=== PATIENT | male | born 1970 | race Caucasian/White ===

== ENCOUNTER 2018-10-07 11:41 | Inpatient (IN) | payer SELFPAY ==
[2018-10-07 12:12] LABS: Bilirubin Negative (Negative); Blood, Urine Negative (Negative); Clarity CLEAR (Clear); Glucose, Urine (Dipstick) >=1000 mg/dL (Negative); Leukocyte Negative (Negative); Nitrite Negative (Negative); Protein, Urine (Dipstick) Negative (Neg-Trace); Specific Gravity, Urine 1.045 (1.002-1.036)
[2018-10-07 12:24] LABS: #Basophils 0.1 thou/uL (0.0-0.2); #Eosinphils 0.2 thou/uL (0.0-0.7); #Lymphocytes 2.6 thou/uL (1.20-3.40); #Monocytes 0.6 thou/uL (0.11-0.59); #Neutrophils 5.5 thou/uL (1.40-6.50); %Basophils 0.7 % (0.0-1.0); %Eosinophils 2.7 % (0.0-10.0); %Lymphocytes 28.7 % (21.0-51.0); %Monocytes 6.4 % (0.0-10.0); %Neutrophils 61.4 % (42.0-75.0); Mean Corpuscular HGB CONC 34.7 g/dL (32.0-36.0); Mean Corpuscular Hemoglobin 32.4 pg (27.0-31.0); Mean Corpuscular Volume 93.3 fL (78.0-98.0); Mean Platelet Volume 10.1 fL (7.4-10.4); Platelet Count 158 thou/uL (130-400); RBC Distribution Width 12.1 % (11.5-14.5); Red Blood Cell (RBC) Count 5.57 mill/uL (4.70-6.10); White Blood Cell (WBC) Count 8.9 thou/uL (4.8-10.8)
--- NOTE | 2018-10-07 12:28 | RAD ---
PA AND LATERAL VIEWS CHEST: HISTORY: Cough. FINDINGS: Comparison is made with the exam of 10/17/2015. The heart size is normal. There is continued mild elevation of the right hemidiaphragm. No focal ar eas of consolidation, pneumothoraces, or pleural effusions are seen. No acute osseous abnormalities are identified. IMPRESSION: No radiographic evidence of acute cardiopulmonary process. POS: C
[2018-10-07 12:47] LABS: ALT (SGPT) 160 U/L (8-55); AST (SGOT) 67 U/L (5-34); Alkaline Phosphatase 252 U/L (40-150); Anion Gap 21 mmol/L (10-20); BUN (Urea Nitrogen) 8 mg/dL (8.9-20.6); Bilirubin, Total 0.8 mg/dL (0.2-1.2); Calc. Creatinine Clearance 0 mL/min (70-130); Calcium 9.5 mg/dL (7.8-10.44); Carbon Dioxide 16 mmol/L (22-29); Chloride 93 mmol/L (98-107); Estimated GFR-MDRD 87; Glucose 453 mg/dL (70-105); Potassium 4.2 mmol/L (3.5-5.1); Sodium 126 mmol/L (136-145)
[2018-10-07 14:21] LABS: Base Excess-Venous 3.2 mmol/L (0 (+/- 2.5)); Bicarbonate (HCO3v) 27.5 mmol/L (1.0-85.0); CO2 Tension (PvCO2) 39.6 mmHg (41.0-51.0); Calcium, Ionized 1.21 mmol/L (1.12-1.32); Hemoglobin - Calc 19.6 g/dL (12.0-18.0); Potassium 3.9 mmol/L (3.4-4.7); T. Carbon Dioxide 28.7 mmol/L (1.0-85.0); pH (Venous) 7.449 (7.35-7.45); vO2 Saturation-calc 87.3 % (94-98)
[2018-10-07 14:59] LABS: Lipase 57 U/L (8-78); Magnesium 2.5 mg/dL (1.6-2.6); Phosphorus 2.3 mg/dL (2.3-4.7)
[2018-10-07] MEDS ORDERED: Piperacillin/Tazobactam 3.375 GM VIAL ONE (15:25)
--- NOTE | 2018-10-07 15:25 | ULT ---
GALLBLADDER ULTRASOUND: Date: 10/07/18 HISTORY: Abdominal pain, elevated LFTs. FINDINGS: The liver demonstrates coarse and increased echogenicity concerning for fatty infiltration. No focal mass or intrahepatic ductal dilatation is seen. There is sludge in the gallbladder without shadowing gallstones. Gallbladder wall is mildly thickened, measuring 4.0 mm in thickness. No pericholecystic f luid is seen. Common duct measures 1.0 cm in diameter. Pancreas is not well visualized due to overlyi ng bowel gas. Right kidney is normal. No free fluid seen in Morison's pouch. IMPRESSION: 1. Fatty liver. 2. Gallbladder sludge and gallbladder wall thickening. 3. Dilated common bile duct. POS: [facility]
[2018-10-07] MEDS ORDERED: Ondansetron PF 4 MG/2 ML Vial IVP PRN (18:44)
[2018-10-07] MEDS ORDERED: Acetaminophen 325 MG TAB PO PRN (18:44)
[2018-10-07] MEDS ORDERED: Dextrose 5% in Water 1,000 ML IV PRN (18:44)
[2018-10-07] MEDS ORDERED: Dextrose 50% Abboject 50 ML SYRINGE SLOW IVP PRN (18:44)
--- NOTE | 2018-10-07 19:02 | PDOC.FPRHP ---
- History of Present Illness Chief Complaint: Generalized weakness, N/V History of Present Illness: 48 year old male with no reported PMH that presents with a 2 week history of generalized weakness, N/V, polyuria, and polydipsia. Patient states that he has been urinating appx every 45 minutes. He also has been constantly thirsty and feels as though he is unable to quench his thirst. He has been nauseous and unable to tolerate PO, although he did eat two hotdogs yesterday. He states that normally he would eat four in one sitting. He states that he generally doesn't feel well. He has had intermittent diarrhea for the last several months. He states that his significant other has an URI, but otherwise he has not been around any sick contacts. Patient denies any recent travel. He denies any past history of blood glucose intolerance. He does not take any medications at home. Patient denies any bloody stools or bloody emesis. He denies any abdominal pain, chest pain, shortness of breath, or palpitations. ED Course: Patient was fluid resuscitated in the ED and started on Zosyn for presumed cholecystitis. Surgery was consulted and advised that a HIDA scan be performed to further evaluate for cholecystitis. - Allergies/Adverse Reactions Allergies Allergy/AdvReac Type Severity Reaction Status Date / Time venom-honey bee Allergy Verified 02/11/15 03:09 [bee venom (honey bee)] - History PMHx: None reported, although our records from prior hospitalization state that patient has history of COPD, HTN, HLD, Tobacco abuse PSHx: Patient denies FHx: Non-contributory Social: Patient endorses smoking 1.5 packs per day since 15 years old. Patient endorses socially drinking. Patient denies drug use. - Review of Systems General: reports: fever/chills (chills), fatigue. denies: weight/appetite/ sleep changes Eyes: denies: vision changes ENT: denies: nasal congestion, rhinorrhea Respiratory: reports: cough (chronic). denies: congestion, shortness of breath Cardiovascular: denies: chest pain, palpitation, edema Gastrointestinal: reports: nausea, vomiting, diarrhea. denies: constipation, abdominal pain, GI bleeding Genitourinary: denies: dysuria Skin: denies: rashes, lesions Musculoskeletal: denies: pain Neurological: reports: weakness. denies: numbness, syncope Psychological: denies: anxiety, depression - Vital signs BP: 121/72 HR: 90 RR: 18 Tmax: 98.8F Pox: 95% on RA Wt: 106 kg - Physical Exam Constitutional: NAD, awake, alert and oriented, well developed HEENT: normocephalic and atraumatic, PERRLA, EOMI -HEENT: Dry mucous membranes Neck: supple Heart: RRR, normal S1/S2 Lungs: CTAB, no respiratory distress, no wheezing -Lungs: Decreased sounds throughout Abdomen: soft, non-tender, bowel sounds present, no masses/distention Musculoskeletal: normal structure, normal tone, ROM grossly normal Neurological: no focal deficit, normal sensation Skin: no rash/lesions, capillary refill <2 seconds Heme/Lymphatic: no unusual bruising or bleeding, no purpura Psychiatric: normal mood and affect, good judgment and insight, intact recent and remote memory FMR H&P: Results - Labs Result Diagrams: 10/07/18 12:13 10/07/18 12:13 Lab results: WBC 8.9 thou/uL (4.8-10.8) 10/07/18 12:13 Hgb 18.0 g/dL (14.0-18.0) 10/07/18 12:13 Hct 52.0 % (42.0-52.0) 10/07/18 12:13 MCV 93.3 fL (78.0-98.0) 10/07/18 12:13 Plt Count 158 thou/uL (130-400) 10/07/18 12:13 Neutrophils % 61.4 % (42.0-75.0) 10/07/18 12:13 VBG pCO2 39.6 mmHg (41.0-51.0) L 10/07/18 14:18 VBG pO2 51.0 mmHg (35.0-45.0) H 10/07/18 14:18 Sodium 126 mmol/L (136-145) L 10/07/18 12:13 Potassium 4.2 mmol/L (3.5-5.1) 10/07/18 12:13 Chloride 93 mmol/L (98-107) L 10/07/18 12:13 Carbon Dioxide 16 mmol/L (22-29) L 10/07/18 12:13 BUN 8 mg/dL (8.9-20.6) L 10/07/18 12:13 Creatinine 0.93 mg/dL (0.6-1.3) 10/07/18 12:13 Glucose 453 mg/dL (70-105) H 10/07/18 12:13 Calcium 9.5 mg/dL (7.8-10.44) 10/07/18 12:13 Total Bilirubin 0.8 mg/dL (0.2-1.2) 10/07/18 12:13 AST 67 U/L (5-34) H 10/07/18 12:13 ALT 160 U/L (8-55) H 10/07/18 12:13 Alkaline Phosphatase 252 U/L (40-150) H 10/07/18 12:13 Serum Total Protein 8.0 g/dL (6.0-8.3) 10/07/18 12:13 Albumin 4.0 g/dL (3.5-5.0) 10/07/18 12:13 Lipase 57 U/L (8-78) 10/07/18 12:11 Urine Ketones 15 mg/dL (Negative) H 10/07/18 11:44 Urine Blood Negative (Negative) 10/07/18 11:44 Urine Nitrite Negative (Negative) 10/07/18 11:44 Ur Leukocyte Esterase Negative (Negative) 10/07/18 11:44 - Radiology Interpretation Chest x-ray Status: image reviewed by me, report reviewed by me Additional comment: No acute cardiopulmonary processes US - abdomen Status: report reviewed by me Additional comment: Biliary slugde and gallbladder wall thickening. Fatty liver. Dilated CBD. FMR H&P: A/P - Problem List (1) Diabetes mellitus, new onset Current Visit: Yes Status: Acute Code(s): E11.9 - TYPE 2 DIABETES MELLITUS WITHOUT COMPLICATIONS (2) Cholecystitis Current Visit: Yes Status: Acute Code(s): K81.9 - CHOLECYSTITIS, UNSPECIFIED (3) Elevated LFTs Current Visit: Yes Status: Acute Code(s): R94.5 - ABNORMAL RESULTS OF LIVER FUNCTION STUDIES - Plan 48 year old male with 2 week history of N/V, weakness, polyuria and polydipsia 1. New onset DM - Likely type II - Random BG > 200 (453) with symptoms - Does not appear to be in DKA. VBG 7.45/39.6/51, Beta-hydroxy 0.7, AG 20, HCO3 16 - CXR negative - Serum osm pending - Q4H accuchecks - Mild SSI; patient insulin naive so monitor closely - Hyperglycemia protocol initiated - Titrate insulin appropriately - FLP pending - HgA1c pending - Patient started on YURI-I, Statin, and ASA - Discuss influenza vaccine, pneumonia vaccine, Hep B series - CC diet - Patient fluid resuscitated in ED - AM BMP 2. Possible cholecystitis - RUQ sono with biliary sludge and gallbladder wall thickening, fatty liver, and dilated CBD - Surgery consulted in ED and recommend HIDA scan be performed to further evaluate - Patient made NPO at midnight for HIDA scan tomorrow - Procalcitonin pending - Patient started on Zosyn per surgery recs - No systemic signs of infection 3. Elevated LFT's - Possibly 2/2 cholecystitis - Lipase negative - Consider GGT to further evaluate as liver etiology - Sono did show evidence of fatty liver 4. Possible HTN - Past records indicate patient has HTN - Patient's BP wnl today - Patient started on low dose YURI-I for renal protection in DM 5. Anion gap metabolic acidosis - AG 20, HCO3 16 - Likely respiratory compensation - Patient fluid resuscitated and goal to bring down BG levels Dispo: Stable. Admit to medical unit. Monitor BG and titrate insulin accordingly. HIDA scan tomorrow with further recs pending those results. FMR H&P: Upper Level - Plan Date/Time: 10/07/18 1859 I, [], have evaluated this patient and agree with findings/plan as outlined by internet programmer resident. Pertinent changes/additions are listed here.
[2018-10-07 19:09] LABS: Hemoglobin A1c 14.6 % (4.0-6.0)
[2018-10-07] MEDS: Nicotine 21 MG PATCH TD SCH (19:24)
[2018-10-07] MEDS: Lactated Ringer's 1,000 ML IV SCH (19:27)
[2018-10-07] MEDS: HumaLOG 300 UNITS/3 ML VIAL SC PRN ×2 (19:29→23:16)
[2018-10-07 19:53] VITALS: BMI 32.5
[2018-10-07] MEDS: Piperacillin/Tazobactam 3.375 GM in Sodium Chloride 0.9% 100 ML IVPB SCH (20:30)
[2018-10-07] MEDS ORDERED: Atorvastatin Calcium 10 MG TAB PO SCH (21:00)
[2018-10-08] MEDS: Piperacillin/Tazobactam 3.375 GM in Sodium Chloride 0.9% 100 ML IVPB SCH ×2 (02:52→08:04)
[2018-10-08] MEDS: Lactated Ringer's 1,000 ML IV SCH ×2 (02:52→13:08)
[2018-10-08 05:03] LABS: ALT (SGPT) 106 U/L (8-55); AST (SGOT) 44 U/L (5-34); Albumin 3.2 g/dL (3.5-5.0); Alkaline Phosphatase 199 U/L (40-150); Anion Gap 17 mmol/L (10-20); BUN (Urea Nitrogen) 8 mg/dL (8.9-20.6); Bilirubin, Total 0.6 mg/dL (0.2-1.2); Calc. Creatinine Clearance 165 mL/min (70-130); Calcium 8.6 mg/dL (7.8-10.44); Carbon Dioxide 17 mmol/L (22-29); Cardiac Risk 25.7 (Less than 4.5); Chloride 98 mmol/L (98-107); Cholesterol 463 mg/dl (< 200 Desired); Estimated GFR-MDRD Greater than 90; Globulin 3.2 g/dL (2.4-3.5); Glucose 367 mg/dL (70-105); HDL Cholesterol 18 mg/dL (>60 Neg Risk); Potassium 3.5 mmol/L (3.5-5.1); Protein, Total 6.4 g/dL (6.0-8.3); Sodium 128 mmol/L (136-145)
[2018-10-08 05:06] LABS: Band 4 % (5-11); Eosinophils 4 % (0-10); Hemoglobin 15.5 g/dL (14.0-18.0); Lymphocytes 35 % (21-51); MDiff Complete? YES; Mean Corpuscular HGB CONC 35.4 g/dL (32.0-36.0); Mean Corpuscular Hemoglobin 33.4 pg (27.0-31.0); Mean Corpuscular Volume 94.2 fL (78.0-98.0); Mean Platelet Volume 10.2 fL (7.4-10.4); Metamyelocyte 1 % (0-0); Monocytes 2 % (0-10); Neutrophil 52 % (42-75); PLT Morphology Comment Appears Adequate; Platelet Count 130 thou/uL (130-400); RBC Distribution Width 11.9 % (11.5-14.5); Red Blood Cell (RBC) Count 4.65 mill/uL (4.70-6.10)
[2018-10-08 05:12] LABS: Triglycerides 2456 mg/dL (Less than 150)
[2018-10-08] MEDS: HumaLOG 300 UNITS/3 ML VIAL SC PRN ×3 (06:06→20:45)
--- NOTE | 2018-10-08 06:26 | PDOC.FM ---
- Subjective Subjective: No complaints, reports feeling much better. Still urinating frequently. Denies abd pain, chest pain. - Objective Vital Signs & Weight: Vital Signs (12 hours) Temp Pulse Resp BP Pulse Ox 10/08/18 04:00 98.0 F 76 16 149/83 H 96 10/07/18 20:00 95 Weight Weight 106 kg Result Diagrams: 10/08/18 03:54 10/08/18 03:54 Phys Exam - Physical Examination Constitutional: NAD HEENT: PERRLA, sclera anicteric Neck: full ROM Respiratory: no wheezing, clear to auscultation bilateral Cardiovascular: RRR, no significant murmur Gastrointestinal: soft, non-tender, no distention, positive bowel sounds Musculoskeletal: no edema, pulses present Neurological: non-focal, normal sensation, moves all 4 limbs Psychiatric: normal affect, A&O x 3 Skin: normal turgor Dx/Plan (1) Diabetes mellitus, new onset Code(s): E11.9 - TYPE 2 DIABETES MELLITUS WITHOUT COMPLICATIONS Status: Acute (2) Cholecystitis Code(s): K81.9 - CHOLECYSTITIS, UNSPECIFIED Status: Acute (3) Hypertriglyceridemia Code(s): E78.1 - PURE HYPERGLYCERIDEMIA Status: Acute (4) Increased anion gap metabolic acidosis Code(s): E87.2 - ACIDOSIS Status: Acute (5) Elevated LFTs Code(s): R94.5 - ABNORMAL RESULTS OF LIVER FUNCTION STUDIES Status: Acute (6) HTN (hypertension) Code(s): I10 - ESSENTIAL (PRIMARY) HYPERTENSION Status: Chronic Qualifiers: Qualified Code(s): I10 - Essential (primary) hypertension - Plan Plan: 48 yo M with new onset DM, possible cholecystitis, elevated LFT, HTN New onset DM, likely type 2, uncontrolled -A1c 14, overnight glucoses in 300s -Start 70/30, 11 units BID & metformin low dose, will inc. if tolerates -ACEI, Statin, ASA Possible cholecystitis -HIDA scan today -No systemic signs of infection -Procal negative -Continue zosyn per surgery recs Hypertriglyceridemia -TG 2456 -Possible familial HyperTG, but patient has never been on medications as well -Started high intensity statin & fenofibrate -ASCVD >87% Anion gap metabolic acidosis, improved - AG 17, HCO3 17 today - Likely respiratory compensation - Expect to improve with glycemic control Elevated LFT's - Possibly 2/2 cholecystitis vs NAFLD - US showed fatty liver HTN -BPs stable -Continue ACEI DVT ppx: SCD Dispo: Stable. Pending HIDA scan results. Working to achieve better glycemic control. Discussed w/ Dr Campos
[2018-10-08] MEDS: Lisinopril 2.5 MG TAB PO SCH (08:05)
[2018-10-08] MEDS ORDERED: Atorvastatin Calcium 10 MG TAB PO SCH (09:00)
[2018-10-08] MEDS ORDERED: Insulin NPH/Reg Insulin Hm 300 UNITS/3 ML VIAL SC SCH (11:30)
[2018-10-08] MEDS: Fenofibrate 48 MG TAB PO SCH (12:25)
[2018-10-08] MEDS: NPH, Human Insulin Isophane 300 UNIT/3 ML VIAL SC SCH ×2 (12:27→20:44)
--- NOTE | 2018-10-08 13:18 | PRG ---
DATE OF SERVICE: 10/08/2018 ADDENDUM: This is an addendum to the note of Dr. Shobha Alaniz. Mr. Carcamo is a 48-year-old man who was admitted with new onset type 2 diabetes with profound hyperglycemia and hypertriglyceridemia, but no evidence of DKA. He also had some evidence of cholelithiasis and possible cholecystitis. Surgery has recommended HIDA scan. We are awaiting the results. We have started the patient on appropriate therapy for his type 2 diabetes, and we are following with recommendations as per Surgery following the HIDA scan. Job ID: [id number]
--- NOTE | 2018-10-08 14:27 | NM ---
HEPATOBILIARY SCAN: Date: 10/08/18 COMPARISON: Gallbladder ultrasound dated 10/07/18. HISTORY: [id number] male with epigastric abdominal pain and possible cholecystitis. TECHNIQUE: Hepatobiliary scan was performed after administration of 5.1 mCi of technetium-99m mebrofenin. FINDINGS: Prompt uptake of the radiopharmaceutical by the liver is seen. Biliary activity is seen within 15 min utes. Bowel activity is seen within 25 minutes. Gallbladder activity is seen after 1 hour, but before the end of the examination. A gallbladder ejection fraction was calculated after administration of 8 oz. of Ensure PO. The ejection fraction is greater than 50%. Evaluation of the gallbladder is limite d as a significant amount of contrast was seen in small bowel loops overlying the gallbladder on the anterior views. IMPRESSION: 1. No evidence of acute cholecystitis. 2. Slight delayed uptake of the radiopharmaceutical by the gallbladder in the first hour, may be sec ondary to chronic cholecystitis. POS: [facility]
[2018-10-08] MEDS: metFORMIN 500 MG TAB PO SCH (16:37)
[2018-10-08] MEDS: Nicotine 21 MG PATCH TD SCH (19:22)
[2018-10-08] MEDS ORDERED: Atorvastatin Calcium 40 MG TAB PO SCH (21:00)
[2018-10-09] MEDS: HumaLOG 300 UNITS/3 ML VIAL SC PRN ×2 (05:34→11:40)
--- NOTE | 2018-10-09 06:15 | PDOC.FM ---
- Subjective Subjective: No acute events overnight. Feeling back to baseline. Denies abd pain, polyuria, polydipsia . - Objective MAR Reviewed: Yes Vital Signs & Weight: Vital Signs (12 hours) Temp Pulse Resp BP Pulse Ox 10/09/18 03:55 92 L 10/08/18 20:00 98.5 F 91 18 133/79 92 L Weight Weight 106 kg I&O: 10/07/18 10/08/18 10/09/18 06:59 06:59 06:59 Intake Total 480 Balance 480 Result Diagrams: 10/09/18 08:06 10/09/18 08:06 Phys Exam - Physical Examination Constitutional: NAD HEENT: PERRLA, moist MMs, sclera anicteric Neck: full ROM Respiratory: no wheezing, clear to auscultation bilateral Cardiovascular: RRR, no significant murmur Gastrointestinal: soft, non-tender, no distention Musculoskeletal: no edema Neurological: non-focal, moves all 4 limbs Psychiatric: normal affect, A&O x 3 Dx/Plan (1) Diabetes mellitus, new onset Code(s): E11.9 - TYPE 2 DIABETES MELLITUS WITHOUT COMPLICATIONS Status: Acute (2) Cholecystitis Code(s): K81.9 - CHOLECYSTITIS, UNSPECIFIED Status: Ruled-out (3) Hypertriglyceridemia Code(s): E78.1 - PURE HYPERGLYCERIDEMIA Status: Acute (4) Increased anion gap metabolic acidosis Code(s): E87.2 - ACIDOSIS Status: Acute (5) Elevated LFTs Code(s): R94.5 - ABNORMAL RESULTS OF LIVER FUNCTION STUDIES Status: Acute (6) HTN (hypertension) Code(s): I10 - ESSENTIAL (PRIMARY) HYPERTENSION Status: Chronic Qualifiers: Qualified Code(s): I10 - Essential (primary) hypertension - Plan Plan: 48 yo M with new onset DM, possible cholecystitis, elevated LFT, HTN New onset IDDM2,improved -Increase 70/30 to 14 units BID -ACEI, Statin, ASA -Diabetic education on board -Continue titrating insulin -If glucose <300 and pt asx, can consider d/c to home Hypertriglyceridemia -TG 2456 on 10/08 -ASCVD >87% -Continue atorvastatin & fenofibrate Elevated LFT's - Likely due to NAFLD - U/S 10/07 showed fatty liver - See #2 HTN -BPs stable -Continue ACEI Possible cholecystitis, RULED OUT -HIDA scan neg. DVT ppx: SCD Dispo: Stable. If sugars remain <300 and pt receives diabetic education can d/c to home w/ f/u. Discussed w/ Dr Campos
[2018-10-09] MEDS: Fenofibrate 48 MG TAB PO SCH (07:56)
[2018-10-09] MEDS: metFORMIN 500 MG TAB PO SCH (07:56)
[2018-10-09] MEDS: Lisinopril 2.5 MG TAB PO SCH (07:56)
[2018-10-09 08:21] LABS: #Basophils 0.1 thou/uL (0.0-0.2); #Eosinphils 0.4 thou/uL (0.0-0.7); #Lymphocytes 3.2 thou/uL (1.20-3.40); #Monocytes 0.7 thou/uL (0.11-0.59); #Neutrophils 5.8 thou/uL (1.40-6.50); %Basophils 1.2 % (0.0-1.0); %Eosinophils 4.1 % (0.0-10.0); %Lymphocytes 31.5 % (21.0-51.0); %Monocytes 6.4 % (0.0-10.0); %Neutrophils 56.8 % (42.0-75.0); Hemoglobin 16.3 g/dL (14.0-18.0); Mean Corpuscular HGB CONC 34.3 g/dL (32.0-36.0); Mean Corpuscular Hemoglobin 32.1 pg (27.0-31.0); Mean Corpuscular Volume 93.7 fL (78.0-98.0); Mean Platelet Volume 9.7 fL (7.4-10.4); Platelet Count 138 thou/uL (130-400); Red Blood Cell (RBC) Count 5.06 mill/uL (4.70-6.10); White Blood Cell (WBC) Count 10.3 thou/uL (4.8-10.8)
[2018-10-09 08:35] LABS: ALT (SGPT) 100 U/L (8-55); AST (SGOT) 38 U/L (5-34); Albumin 3.5 g/dL (3.5-5.0); Alkaline Phosphatase 208 U/L (40-150); Anion Gap 10 mmol/L (10-20); BUN (Urea Nitrogen) 8 mg/dL (8.9-20.6); Bilirubin, Total 0.8 mg/dL (0.2-1.2); Calc. Creatinine Clearance 159 mL/min (70-130); Carbon Dioxide 25 mmol/L (22-29); Chloride 101 mmol/L (98-107); Estimated GFR-MDRD Greater than 90; Globulin 3.3 g/dL (2.4-3.5); Glucose 292 mg/dL (70-105); Potassium 4.1 mmol/L (3.5-5.1); Protein, Total 6.8 g/dL (6.0-8.3); Sodium 132 mmol/L (136-145)
[2018-10-09] MEDS ORDERED: NPH, Human Insulin Isophane 300 UNIT/3 ML VIAL SC SCH (09:00)
[2018-10-09 11:34] VITALS: BP 111/76; TEMP 98.2
--- NOTE | 2018-10-09 12:08 | PRG ---
DATE OF SERVICE: 10/09/2018 SUBJECTIVE: Mr. Carcamo's HIDA scan was negative for acute cholecystitis. His blood glucose levels are improving and are below 300. We will discharge him on Humulin 70/30 and continue outpatient management of his type 2 diabetes. Job ID: [id number]
[2018-10-09] MEDS ORDERED: metFORMIN 500 MG TAB PO SCH (17:00)
[2018-10-09] MEDS ORDERED: Atorvastatin Calcium 40 MG TAB PO SCH (21:00)
--- NOTE | 2018-10-12 09:34 | DIS ---
DATE OF ADMISSION: 10/07/2018 DATE OF DISCHARGE: 10/09/2018 ADMITTING ATTENDING: Dr. Rosa Mahoney DISCHARGE ATTENDING: Alexandr Phillips MD CONSULTS: None. PROCEDURES: 1. Abdominal ultrasound: Fatty liver, gallbladder sludge and gallbladder wall thickening, dilated common bile duct. 2. HIDA scan: No evidence of acute cholecystitis. Slight delayed uptake of contrast by the gallbladder in the first hour maybe secondary to chronic cholecystitis. PRIMARY DIAGNOSES: 1. Newly diagnosed insulin-dependent diabetes mellitus 2. 2. Possible chronic cholecystitis. 3. Hypertriglyceridemia. 4. Resolved anion gap metabolic acidosis. 5. Hypertension. DISCHARGE MEDICATIONS: 1. Aspirin 81 mg p.o. daily. 2. Lipitor 80 mg p.o. at bedtime. 3. GlucoNavii test strip. 4. GlucoNavii glucose meter. 5. Fenofibrate 48 mg p.o. daily. 6. BD Ultra-fine Lancets. 7. Lisinopril 2.5 mg p.o. daily. 8. Metformin 1000 mg p.o. b.i.d. with meals. 9. Nicotine patch 21 mg transderm every 24 hours. 10. NPH 14 units subcu b.i.d. 11. Insulin 0.3 mL syringe. DISCONTINUED MEDICATIONS: None. HISTORY OF PRESENT ILLNESS/HOSPITAL COURSE: The patient is a 48-year-old male, who presented to the ED for polyuria, polydipsia, weakness, nausea, and vomiting. Labs were pertinent for A1c of 14 with an anion gap metabolic acidosis and extremely elevated glucose level. The patient was admitted for hyperglycemia in the setting of new onset IDDM2. He was started on insulin and over his stay, glucose improved and the patient became asymptomatic. Over 30 minutes was spent with the patient explaining the importance of insulin and his newly diagnosed diabetic condition and provided diabetic education from the provider. In addition, there was a concern for acute cholecystitis due to c/o RUQ pain. Right upper quadrant ultrasound was indeterminate for cholecystitis with subsequently negative HIDA scan. Throughout the remainder of the time, the patient remained asymptomatic, never experiencing any abdominal pain nor postprandial intolerance. Labs were also pertinent for triglycerides, greater than 2000. The patient had not been to a doctor in quite a while. He was started on fenofibrate and high intensity statin. Overall, the patient clinically improved with achieved glycemic control, resolution of anion gap metabolic acidosis, and ruling out of acute cholecystitis. The patient was sent home with instructions to followup at [facility] in order to be able to obtain financial assistance for long-acting insulin. Lastly, the patient was started on lisinopril for newly diagnosed hypertension due to its renal protective effects. DISPOSITION: Stable. DISCHARGE INSTRUCTIONS: 1. Location; home. 2. Diet; heart-healthy. 3. Activity; ad amena. 4. Followup; please follow up and establish care at [facility]. Please inquire about obtaining achieving financial assistance for affording insulin. Job ID: [id number] [facility] CENTERAlexus
== END 2018-10-09 14:29 | disposition home or self-care (01) | DRG 638 ==
LOC: ERS 11:41 → T4-B 18:14
PROVIDERS: ADMIT Family Medicine; ATTEND Family Medicine
DX: E11.65 Type 2 diabetes mellitus with hyperglycemia (principal); E87.2 Acidosis; I10 Essential (primary) hypertension; F17.210 Nicotine dependence, cigarettes, uncomplicated; E78.1 Pure hyperglyceridemia; K81.1 Chronic cholecystitis; K76.0 Fatty (change of) liver, not elsewhere classified; Z91.030 Bee allergy status
CPT/HCPCS: 36415; 36416; 71046; 76705; 78227; 80053; 80061; 81003; 82010; 82330; 82803; 83036; 83690; 83735; 83930; 84100; 84145; 85025; 87804; 90471; 90686; 90732; 96361; 96365; A9537; G0008; G0009; J1815; J2543; J7050

== ENCOUNTER 2020-02-20 06:10 | Inpatient (IN) | payer SELFPAY ==
[2020-02-20] MEDS ORDERED: Nitroglycerin 2% Ointment 1 INCH/1 GM Packet ONE (06:18)
[2020-02-20] MEDS ORDERED: Enoxaparin Sodium 60 MG/0.6 ML SYRINGE ONE (06:40)
[2020-02-20] MEDS ORDERED: Nitroglycerin 0.4 MG TAB (25 Tab Bottle) PO PRN (06:43)
[2020-02-20] MEDS ORDERED: Dextrose 50% Abboject 50 ML SYRINGE SLOW IVP PRN (06:45)
[2020-02-20] MEDS ORDERED: Dextrose 5% in Water 1,000 ML IV PRN (06:45)
[2020-02-20] MEDS ORDERED: hydrALAZINE 20 MG/ML VIAL SLOW IVP PRN (06:46)
--- NOTE | 2020-02-20 07:21 | HP ---
CHIEF COMPLAINT: Chest pain. HISTORY OF PRESENT ILLNESS: The patient is a 50-year-old male with history of diabetes and obesity, who presents to the hospital with complaints of chest pain going on for the past couple of days. The patient stated that for the past few days he has been having substernal chest tightness, radiating to his bilateral upper extremities and also jaw area, going on for the past few days. He states that his pain can be while he is walking or while he is sitting. He states that normally his pain will last about 10 to 15 minutes. He normally takes a Tylenol after that. He states that after the chest pain, he feels that he has ran a marathon. He also feels diaphoretic and he also complains of a headache after his chest pain. He denies any fevers or chills or any recent travels. The patient stated that today he woke up around 3:30 this morning and started having chest tightness, and the pain was more intense compared to his previous episodes, so he came to the ER for further evaluation. The patient states that he has had a stress test about 5 years ago. PAST MEDICAL HISTORY: History of diabetes, he is on metformin. PAST SURGICAL HISTORY: Denies. SOCIAL HISTORY: He smokes 2.5 packs of cigarettes a day. Denies any alcohol use or drug use. He is a full code. ALLERGIES: NO KNOWN DRUG ALLERGIES. MEDICATIONS: He is on metformin 500 mg daily. FAMILY HISTORY: Mother and father are still alive and they are doing well. REVIEW OF SYSTEMS: All negative except for the ones mentioned above in the HPI. LABORATORY DATA: Laboratory results are as of the following: His WBC is 13.9, hemoglobin of 17.9, hematocrit of 55.0, and platelets of 166. Chemistry; sodium of 135, potassium of 4.1, BUN of 19, and creatinine of 1.01. His sugar is 293. His troponin x1 was 1.596. His BNP is 120. His AST is 27, ALT is 64, and his alkaline phosphatase is 128. His D-dimer was negative. DIAGNOSTIC DATA: His EKG did not show any ST elevation or depression; however, the EKG was a suboptimal study. I will repeat the EKG. He did have a chest x-ray, which did not show any acute infiltrates. ASSESSMENT AND PLAN: The patient is a pleasant 50-year-old male, who presents to the hospital with chest pain. 1. [id number] myocardial infarction. We will start the patient on Lovenox. He was given aspirin. I will also give him a statin and continue the aspirin. We will trend the troponins. We will get Cardiology to see this patient. He has many risk factors including diabetes. He was found to be hypertensive and also obesity and his previous records indicate that he had hyperlipidemia. We will keep him n.p.o. for now. 2. New diagnosis of hypertension. The patient states that he has not been on any medications for high blood pressure. I will start him on some metoprolol low dose. He also needs to be on lisinopril given the fact that he is diabetic; however, for now, if he goes for a cardiac cath, I will hold off on the lisinopril for now. The patient may be started on that later. 3. Obesity. The patient states that he does snore at night. He will need a sleep study as an outpatient. 4. Elevated ALT and alkaline phosphatase. I will order a GGT on him. When he was here in his previous visits in 2018, he did have a HIDA scan done, which did not indicate any acute evidence of acute cholecystitis, but did indicate chronic cholecystitis. I will also check a hepatitis panel since he has significant tattooing all over. 5. Deep venous thrombosis prophylaxis. He is already on Lovenox. We will continue that. 6. Diabetes. I will hold off on the metformin, put him on a sliding scale insulin for now. Job ID: [id number]
[2020-02-20] MEDS ORDERED: Aspirin 325 mg Enteric Coated Tablet PO SCH (09:00)
[2020-02-20 09:50] LABS: Troponin I 3.192 ng/mL (< 0.028)
[2020-02-20 10:15] VITALS: BMI 35.5
[2020-02-20] MEDS: Metoprolol Tartrate 25 MG TAB PO SCH ×2 (11:40→21:35)
[2020-02-20] MEDS: Enoxaparin Sodium 120 MG/0.8 ML SYRINGE SC SCH ×2 (11:40→21:34)
[2020-02-20 12:05] LABS: HBCM Index 0.07 S/CO (0-0.79); HBSAg Index 0.19 S/CO (0-0.99); Hep A IgM AB Non-Reactive (NonReactive); Hep A IgM S/CO 0.11 S/CO (0-0.79); Hep B Surf Ag Non-Reactive S/CO (NonReactive); Hep C IgG Ab Non-Reactive (NonReactive); Hep C Index 0.08 S/CO (0-0.79); Hepatitis B Core IgM Abs Non-Reactive (NonReactive)
[2020-02-20] MEDS ORDERED: Communication Order-Pharmacy FS SCH (12:45)
--- NOTE | 2020-02-20 13:29 | PDOC.HOSPP ---
- Subjective Encounter Date: 02/20/20 Encounter Time: 13:27 Subjective: Mr. Carcamo was seen today in follow-up of NSTEMI. He is sitting up in bed eating lunch. He denies any chest pain, or difficulty breathing. - Objective Vital Signs & Weight: Vital Signs (12 hours) Temp Pulse Resp BP Pulse Ox 02/20/20 12:47 98.4 F 94 16 113/63 95 02/20/20 10:12 98.2 F 89 16 130/76 96 Weight Weight 254 lb 14.4 oz Additional Labs: Accuchecks 02/20/20 10:58 POC Glucose 238 H Hospitalist ROS - Medication Medications: Active Medications Generic Name Dose Route Start Last Admin Trade Name Freq PRN Reason Stop Dose Admin Aspirin 325 mg 02/20/20 09:00 02/20/20 11:40 Ecotrin PO Not Given DAILY [facility] Enoxaparin Sodium 120 mg 02/20/20 09:00 02/20/20 11:40 Lovenox SC 02/20/20 21:59 Not Given 0900,2100 [facility] Metoprolol Tartrate 12.5 mg 02/20/20 09:00 02/20/20 11:40 Lopressor PO Not Given BID MARIA GUADALUPE - Exam Eye: PERRL Heart: RRR, no murmur, no gallops, no rubs, normal peripheral pulses Respiratory: CTAB, no wheezes, no rales, no ronchi, normal chest expansion Gastrointestinal: soft, non-tender, non-distended, normal bowel sounds Extremities: no cyanosis, no edema Hosp A/P (1) NSTEMI (non-ST elevated myocardial infarction) Code(s): I21.4 - NON-ST ELEVATION (NSTEMI) MYOCARDIAL INFARCTION Status: Acute (2) COPD (chronic obstructive pulmonary disease) with acute bronchitis Code(s): J44.0 - CHR OBSTRUCTIVE PULMON DISEASE WITH (ACUTE) LOWER RESP INFCT Status: Acute (3) Hypertriglyceridemia Code(s): E78.1 - PURE HYPERGLYCERIDEMIA Status: Acute (4) HTN (hypertension) Code(s): I10 - ESSENTIAL (PRIMARY) HYPERTENSION Status: Chronic Qualifiers: Qualified Code(s): I10 - Essential (primary) hypertension - Plan * NSTEMI- continue, Nitrates, beta-stephany, aspirin and Lovenox * Plan is for cardiac cath in the AM * Dyslipidemia- lipid panel is pending * HTN- blood pressure is stable
--- NOTE | 2020-02-20 14:12 | CON ---
DATE OF CONSULTATION: HISTORY OF PRESENT ILLNESS: Kalyn Carcamo is a 50-year-old white male with history of diabetes. He was evaluated here at [facility] in February 2014 for chest discomfort. He had a normal Cardiolite test. Over the last 3 days, he has had multiple episodes of central chest pressure radiating to both arms associated with shortness of breath, nausea, and diaphoresis. These episodes would occur at rest or with exertion. He never had a more prolonged episode. He then awoke this morning at approximately 3:30 a.m. with the same type of discomfort and this episode was more intense in nature and he decided to go to the emergency room in [place] (he lives in [place], but states he was visiting in [place]). He was given aspirin 324 mg, regular insulin, and metoprolol 5 mg IV. He states his pain did almost subsided by the time he got to the emergency room in [place]. He had abnormal enzymes and was transferred to [place] for further evaluation. In the emergency room here, he was given Lovenox 1 mg/kg and 1 inch of topical nitrates. He denies any further chest discomfort since he awoke at 3:30 this morning. PAST MEDICAL HISTORY: Diabetes. He states that he had hypercholesterolemia, was on medication for a period of time. In 2014, his LDL was 130. He also has had triglycerides as high as 2456 in September 2018. He denies any history of hypertension but his blood pressure was 165/117 with a pulse of 114 when he initially presented to the emergency room in [place]. MEDICATIONS: Metformin 500 mg daily. ALLERGIES: BEE STINGS. SOCIAL HISTORY: Smokes 2-1/2 packs per day. He does not drink. FAMILY HISTORY: Negative for coronary artery disease in the immediate family. REVIEW OF SYSTEMS: 10-point review of systems is unremarkable. PHYSICAL EXAMINATION: VITAL SIGNS: Blood pressure 130/76, pulse of 89. HEENT: PERRL. NECK: Supple. Carotid upstrokes normal without bruits. CHEST: Clear. CARDIAC: S1 and S2 normal without any S3, S4, or murmurs. ABDOMEN: Normal bowel sounds without tenderness or organomegaly. Abdomen is mildly obese. EXTREMITIES: Reveal no clubbing, cyanosis, or edema. NEUROLOGIC: Grossly intact. SKIN: Warm and dry. LABORATORY DATA: EKG from [facility] revealed sinus tachycardia with rate of 112 per minute with no acute changes. Hemoglobin 17.9, hematocrit 55.0, white count 13, 900, platelets 166,000. D-dimer 0.39. Troponin I is up to 3.192. Sodium 135, potassium 4.1, chloride 102, carbon dioxide 21, BUN 19, creatinine 1.09, glucose 293, ALT 64, alk phosphatase 128. IMPRESSION: 1. Xze-HO-yhhlpossw myocardial infarction with acute coronary syndrome over the last 3 days. At present time, he is pain-free. 2. Diabetes. 3. Hypercholesterolemia. He was on medications in the past, but states he was told that his numbers were normal and he could stop taking them. 4. Probable hypertension. 5. Smoker, 2-1/2 packs per day. PLAN: The patient was strongly urged to never smoke again, especially with diabetes. Fasting lipid profile will be obtained in the morning. It was recommended he undergo cardiac catheterization. Risks and benefits have been discussed including , myocardial infarction, dye reaction, vascular injury, CVA, transfusion, limb loss, renal loss, etc. Also risk of intervention with PTCA and stent placement were discussed including , myocardial infarction, emergent CABG, restenosis, stent thrombosis, vessel perforation, etc. He has no history of gastrointestinal bleeding or stroke. He has no upcoming surgical procedures planned. Therefore, a drug-eluting stent will be placed if needed. Even though he has had a non-STEMI, he does not have insurance. It is doubtful that he could afford Brilinta and so Plavix would be used. Job ID: [id number] [facility]
[2020-02-20] MEDS: Nitroglycerin 2% Ointment 1 INCH/1 GM Packet TOP SCH ×2 (14:24→21:35)
[2020-02-20] MEDS: HumaLOG 300 UNITS/3 ML VIAL SC PRN ×3 (14:25→21:39)
[2020-02-20] MEDS ORDERED: Acetaminophen 325 MG TAB PO PRN (15:07)
[2020-02-20] MEDS: Atorvastatin Calcium 40 MG TAB PO SCH (21:34)
[2020-02-21 05:02] LABS: Cardiac Risk 10.3 (Less than 4.5); Cholesterol 248 mg/dl (< 200 Desired); HDL Cholesterol 24 mg/dL (>60 Neg Risk)
[2020-02-21 05:15] LABS: Triglycerides 1078 mg/dL (Less than 150)
[2020-02-21] MEDS: Metoprolol Tartrate 25 MG TAB PO SCH ×2 (05:40→20:13)
[2020-02-21] MEDS ORDERED: Sodium Chloride 0.9% 1,000 ML IV SCH ×2 (06:00→08:24)
[2020-02-21] MEDS ORDERED: Heparin 10,000 UNITS/1 ML VIAL ONE (06:34)
[2020-02-21] MEDS: Nitroglycerin 2% Ointment 1 INCH/1 GM Packet TOP SCH (06:40)
[2020-02-21] MEDS ORDERED: Midazolam HCl 2 mg/2 ml Vial ONE (07:10)
[2020-02-21] MEDS ORDERED: Fentanyl 100 MCG/2 ML VIAL ONE (07:10)
[2020-02-21] MEDS ORDERED: Bivalirudin 250 MG VIAL ONE (07:31)
[2020-02-21] MEDS ORDERED: Clopidogrel Bisulfate 300 MG TAB ONE (07:31)
[2020-02-21] MEDS ORDERED: Nitroglycerin 100MG/250ML BOT 250 ML ONE (07:32)
[2020-02-21] MEDS ORDERED: Morphine 2 MG/ML SYRINGE SLOW IVP PRN (08:23)
[2020-02-21] MEDS ORDERED: Morphine 2 MG/ML SYRINGE ONE (10:24)
[2020-02-21 10:56] LABS: #Basophils 0.1 thou/uL (0.0-0.2); #Eosinphils 0.2 thou/uL (0.0-0.7); #Lymphocytes 2.6 thou/uL (1.20-3.40); #Monocytes 0.7 thou/uL (0.11-0.59); #Neutrophils 5.4 thou/uL (1.40-6.50); %Basophils 0.8 % (0.0-1.0); %Eosinophils 2.3 % (0.0-10.0); %Monocytes 7.8 % (0.0-10.0); %Neutrophils 60.1 % (42.0-75.0); Hemoglobin 16.8 g/dL (14.0-18.0); Mean Corpuscular Hemoglobin 31.4 pg (27.0-31.0); Mean Corpuscular Volume 95.1 fL (78.0-98.0); Mean Platelet Volume 9.2 fL (7.4-10.4); Platelet Count 140 thou/uL (130-400); RBC Distribution Width 12.1 % (11.5-14.5); Red Blood Cell (RBC) Count 5.36 mill/uL (4.70-6.10); White Blood Cell (WBC) Count 9.1 thou/uL (4.8-10.8)
[2020-02-21 11:05] LABS: Hemoglobin A1c 9.6 % (4.0-6.0)
[2020-02-21 11:18] LABS: Anion Gap 14 mmol/L (10-20); BUN (Urea Nitrogen) 10 mg/dL (8.9-20.6); Calc. Creatinine Clearance 202 mL/min (70-130); Carbon Dioxide 19 mmol/L (22-29); Chloride 104 mmol/L (98-107); Estimated GFR-MDRD Greater than 90; Glucose 198 mg/dL (70-105); Potassium 4.1 mmol/L (3.5-5.1); Sodium 133 mmol/L (136-145)
[2020-02-21] MEDS ORDERED: Iopamidol 370 76% 50 ML VIAL FS ONE (11:33)
[2020-02-21] MEDS ORDERED: Iopamidol 370 76% 100 ML VIAL ONE (11:33)
[2020-02-21] MEDS: Aspirin Chewable 81 MG TAB PO SCH (12:46)
[2020-02-21] MEDS: Fish Oil 1,000 MG CAP PO SCH ×2 (12:46→20:13)
--- NOTE | 2020-02-21 17:31 | PDOC.HOSPP ---
- Subjective Encounter Date: 02/21/20 Encounter Time: 17:27 Subjective: Mr. Carcamo was seen today in follow-up of NSTEMI. He does not have any new complaints. He denies chest pain. - Objective Vital Signs & Weight: Vital Signs (12 hours) Temp Pulse Resp BP Pulse Ox 02/21/20 16:19 98.0 F 88 16 125/72 95 02/21/20 11:35 98.6 F 87 18 137/87 95 02/21/20 05:45 81 18 121/60 Weight Weight 254 lb 14.4 oz I&O: 02/20/20 02/21/20 02/22/20 06:59 06:59 06:59 Intake Total 1440 Balance 1440 Result Diagrams: 02/21/20 10:42 02/21/20 10:42 Additional Labs: Accuchecks 02/21/20 02/21/20 02/20/20 09:34 05:46 16:45 POC Glucose 226 H 225 H 316 H Hospitalist ROS - Medication Medications: Active Medications Generic Name Dose Route Start Last Admin Trade Name Freq PRN Reason Stop Dose Admin Acetaminophen 650 mg 02/20/20 15:07 02/20/20 15:49 Tylenol PO 650 mg Q6H PRN Administration Headache Aspirin 81 mg 02/21/20 09:00 02/21/20 12:46 Aspirin Chewable PO 81 mg DAILY MARIA GUADALUPE Administration Atorvastatin Calcium 40 mg 02/20/20 21:00 02/20/20 21:34 Lipitor PO 40 mg HS MARIA GUADALUPE Administration Fish Oil 2,000 mg 02/21/20 09:00 02/21/20 12:46 Fish Oil PO 2,000 mg BID MARIA GUADALUPE Administration Insulin Human Lispro 0 units 02/20/20 06:45 02/20/20 21:39 Humalog SC 3 unit .MILD SLIDING SCALE PRN Administration Mild Correctional Scale Metoprolol Tartrate 12.5 mg 02/20/20 09:00 02/21/20 05:40 Lopressor PO 12.5 mg BID MARIA GUADALUPE Administration Sodium Chloride 10 ml 02/21/20 09:00 02/21/20 12:47 Flush - Normal Saline IVF 10 ml Q12HR MARIA GUADALUPE Administration - Exam Eye: PERRL Heart: RRR, no murmur, no gallops, no rubs, normal peripheral pulses Respiratory: CTAB, no wheezes, no rales, no ronchi, normal chest expansion Gastrointestinal: soft, non-tender, non-distended, normal bowel sounds, no palpable masses, no hepatomegaly Extremities: no cyanosis Hosp A/P (1) NSTEMI (non-ST elevated myocardial infarction) Code(s): I21.4 - NON-ST ELEVATION (NSTEMI) MYOCARDIAL INFARCTION Status: Acute (2) COPD (chronic obstructive pulmonary disease) with acute bronchitis Code(s): J44.0 - CHR OBSTRUCTIVE PULMON DISEASE WITH (ACUTE) LOWER RESP INFCT Status: Acute (3) Hypertriglyceridemia Code(s): E78.1 - PURE HYPERGLYCERIDEMIA Status: Acute (4) HTN (hypertension) Code(s): I10 - ESSENTIAL (PRIMARY) HYPERTENSION Status: Chronic Qualifiers: Qualified Code(s): I10 - Essential (primary) hypertension - Plan * NSTEMI- continue, Nitrates, beta-stephany, aspirin and Lovenox * He had the cardiac cath, and thye findings are noted. He had 3 vessel CAD and the placement of two drug eluting stents * HTN- blood pressure is stable * He was counseled on smoking cessation. He tells me he is definately going to quit. He has tried both Chantix and Wellbutryn in the past, without much success. We discussed the Nicotrol inhaler, and he is considering this. * Likely home tomorrow.
[2020-02-21] MEDS: Atorvastatin Calcium 40 MG TAB PO SCH (20:13)
[2020-02-22 04:46] LABS: #Basophils 0.1 thou/uL (0.0-0.2); #Eosinphils 0.4 thou/uL (0.0-0.7); #Lymphocytes 2.3 thou/uL (1.20-3.40); #Monocytes 0.9 thou/uL (0.11-0.59); #Neutrophils 5.6 thou/uL (1.40-6.50); %Basophils 0.8 % (0.0-1.0); %Eosinophils 4.1 % (0.0-10.0); %Lymphocytes 25.2 % (21.0-51.0); %Monocytes 9.5 % (0.0-10.0); %Neutrophils 60.4 % (42.0-75.0); Hemoglobin 16.6 g/dL (14.0-18.0); Mean Corpuscular HGB CONC 33.4 g/dL (32.0-36.0); Mean Corpuscular Hemoglobin 31.7 pg (27.0-31.0); Mean Platelet Volume 8.9 fL (7.4-10.4); Platelet Count 145 thou/uL (130-400); RBC Distribution Width 11.9 % (11.5-14.5); Red Blood Cell (RBC) Count 5.24 mill/uL (4.70-6.10); White Blood Cell (WBC) Count 9.3 thou/uL (4.8-10.8)
[2020-02-22 05:14] LABS: ALT (SGPT) 45 U/L (8-55); AST (SGOT) 28 U/L (5-34); Albumin 3.8 g/dL (3.5-5.0); Alkaline Phosphatase 101 U/L (40-110); Anion Gap 15 mmol/L (10-20); BUN (Urea Nitrogen) 11 mg/dL (8.9-20.6); Bilirubin, Total 0.5 mg/dL (0.2-1.2); Calc. Creatinine Clearance 162 mL/min (70-130); Calcium 9.2 mg/dL (7.8-10.44); Carbon Dioxide 23 mmol/L (22-29); Chloride 102 mmol/L (98-107); Estimated GFR-MDRD 89; Globulin 3.3 g/dL (2.4-3.5); Glucose 284 mg/dL (70-105); Potassium 4.5 mmol/L (3.5-5.1); Protein, Total 7.1 g/dL (6.0-8.3); Sodium 135 mmol/L (136-145)
[2020-02-22] MEDS: Aspirin Chewable 81 MG TAB PO SCH (08:22)
[2020-02-22] MEDS: Metoprolol Tartrate 25 MG TAB PO SCH (08:22)
[2020-02-22] MEDS: Fish Oil 1,000 MG CAP PO SCH (08:23)
[2020-02-22] MEDS: HumaLOG 300 UNITS/3 ML VIAL SC PRN ×2 (08:23→12:06)
[2020-02-22] MEDS ORDERED: Clopidogrel Bisulfate 75 MG TAB PO SCH (09:00)
--- NOTE | 2020-02-22 11:31 | PDOC.HOSPP ---
- Subjective Encounter Date: 02/22/20 Encounter Time: 11:30 Subjective: Mr. Carcamo was seen today in follow-up. He does not have any complaints. He denies cheat pain or shortness of breath. - Objective Vital Signs & Weight: Vital Signs (12 hours) Temp Pulse Resp BP Pulse Ox 02/22/20 07:18 98.7 F 82 16 117/63 96 02/22/20 03:37 98.4 F 90 18 111/65 20 L Weight Weight 254 lb 14.4 oz I&O: 02/21/20 02/22/20 02/23/20 06:59 06:59 06:59 Intake Total 1440 1340 Output Total 1150 Balance 1440 190 Result Diagrams: 02/22/20 04:27 02/22/20 04:27 Additional Labs: Accuchecks 02/22/20 02/21/20 02/20/20 08:27 16:58 20:35 POC Glucose 226 H 293 H 209 H Hospitalist ROS - Medication Medications: Active Medications Generic Name Dose Route Start Last Admin Trade Name Freq PRN Reason Stop Dose Admin Acetaminophen 650 mg 02/20/20 15:07 02/20/20 15:49 Tylenol PO 650 mg Q6H PRN Administration Headache Aspirin 81 mg 02/21/20 09:00 02/22/20 08:22 Aspirin Chewable PO 81 mg DAILY MARIA GUADALUPE Administration Atorvastatin Calcium 40 mg 02/20/20 21:00 02/21/20 20:13 Lipitor PO 40 mg HS MARIA GUADALUPE Administration Clopidogrel Bisulfate 75 mg 02/22/20 09:00 02/22/20 08:23 Plavix PO 75 mg DAILY MARIA GUADALUPE Administration Fish Oil 2,000 mg 02/21/20 09:00 02/22/20 08:23 Fish Oil PO 2,000 mg BID MARIA GUADALUPE Administration Insulin Human Lispro 0 units 02/20/20 06:45 02/22/20 08:23 Humalog SC 3 unit .MILD SLIDING SCALE PRN Administration Mild Correctional Scale Metoprolol Tartrate 12.5 mg 02/20/20 09:00 02/22/20 08:22 Lopressor PO 12.5 mg BID MARIA GUADALUPE Administration Sodium Chloride 10 ml 02/21/20 09:00 02/22/20 08:22 Flush - Normal Saline IVF 10 ml Q12HR MARIA GUADALUPE Administration - Exam Eye: PERRL Heart: RRR, no murmur, no gallops, no rubs, normal peripheral pulses Respiratory: CTAB, no wheezes, no rales, no ronchi, normal chest expansion, no tachypnea, normal percussion Gastrointestinal: soft, non-tender, non-distended, normal bowel sounds, no palpable masses, no hepatomegaly Extremities: no cyanosis, no edema Hosp A/P (1) NSTEMI (non-ST elevated myocardial infarction) Code(s): I21.4 - NON-ST ELEVATION (NSTEMI) MYOCARDIAL INFARCTION Status: Acute (2) COPD (chronic obstructive pulmonary disease) with acute bronchitis Code(s): J44.0 - CHR OBSTRUCTIVE PULMON DISEASE WITH (ACUTE) LOWER RESP INFCT Status: Acute (3) Hypertriglyceridemia Code(s): E78.1 - PURE HYPERGLYCERIDEMIA Status: Acute (4) HTN (hypertension) Code(s): I10 - ESSENTIAL (PRIMARY) HYPERTENSION Status: Chronic Qualifiers: Qualified Code(s): I10 - Essential (primary) hypertension - Plan * NSTEMI- continue, Nitrates, beta-stephany, aspirin and Lovenox * Patient is s/p cardiac cath, with STENT x2 * HTN- blood pressure is stable * DM- will increase Metformin to twice a day * Anticipate home today
[2020-02-22 15:17] VITALS: BP 119/64; TEMP 98.4
--- NOTE | 2020-02-23 01:57 | DIS ---
DATE OF ADMISSION: 02/20/2020 DATE OF DISCHARGE: 02/22/2020 DISCHARGE DISPOSITION: Home. PRIMARY DISCHARGE DIAGNOSES: 1. Non ST-elevation myocardial infarction. 2. Hypertension. 3. Diabetes mellitus type 2. 4. Dyslipidemia. 5. Tobacco abuse. DISCHARGE MEDICATIONS: Include: 1. Nicotrol inhaler. 2. Plavix 75 mg daily. 3. Aspirin 81 mg daily. 4. Fish oil 2000 mg twice a day. 5. Metformin 500 mg b.i.d. 6. Metoprolol 12.5 mg twice a day. PROCEDURES DONE DURING THE HOSPITAL STAY: The patient had a cardiac catheterization showing three vessel coronary artery disease with 50% lesion in the proximal LAD. The left mid circumflex had 99% stenosis, 7 mm in length, and the RCA had 50% stenosis. The mid circumflex had 70%. The patient also had placement of two drug-eluting stents. CODE STATUS: Full code. ALLERGIES: [place] VENOM. HOSPITAL COURSE: Mr. Carcamo is a pleasant 50-year-old gentleman, who was admitted to the hospital after complaining of chest pain and dyspnea. His pain was relatively classic and he was evaluated in the ER. He was found to have an elevated troponin which peaked at 3.192. He was evaluated by Cardiology, underwent cardiac catheterization. Was found to have three-vessel coronary artery disease. He underwent the successful placement of two coronary stents and had an uneventful post procedure course and was subsequently discharged home the following day. Aspirin, Plavix, Lipitor, and metoprolol were added as well as fish oil. He was also counseled on smoking cessation and was started on a Nicotrol inhaler. He had tried Chantix as well as Wellbutrin in the past without much success. He will be following up with his primary care physician in 1 to 2 weeks [address] Kilpatrick as instructed. Job ID: [id number]
--- NOTE | 2020-02-23 14:25 | EKG ---
Test Reason : POST STENT X2-LAD Blood Pressure : / mmHG Vent. Rate : 077 BPM Atrial Rate : 077 BPM P-R Int : 160 ms QRS Dur : 096 ms QT Int : 364 ms P-R-T Axes : 058 -37 052 degrees QTc Int : 411 ms Normal sinus rhythm Left axis deviation Inferior infarct , age undetermined Abnormal ECG Confirmed by WESLEY SIERRA ([id number]) on 02/23/2020 2:25:24 PM Referred By: CECILIO Confirmed By:WESLEY SIERRA
--- NOTE | 2020-02-23 14:36 | EKG ---
Test Reason : TIMED Blood Pressure : / mmHG Vent. Rate : 083 BPM Atrial Rate : 083 BPM P-R Int : 152 ms QRS Dur : 096 ms QT Int : 362 ms P-R-T Axes : 067 -37 078 degrees QTc Int : 425 ms Normal sinus rhythm Left axis deviation Nonspecific ST and T wave abnormality Abnormal ECG Confirmed by WESLEY SIERRA ([id number]) on 02/23/2020 2:35:57 PM Referred By: CECILIO Confirmed By:WESLEY SIERRA
== END 2020-02-22 17:50 | disposition home or self-care (01) | DRG 247 ==
LOC: ERS 06:10 → 2NO 06:37 → OBSVTOIN 06:37
PROVIDERS: ADMIT Internal Medicine; ATTEND Internal Medicine
PROC: 027135Z Dilation of Coronary Artery, Two Arteries with Two Drug-eluting Intraluminal Devices, Percutaneous Approach (ICD-10-PCS; principal; 2020-02-21)
PROC: 4A023N7 Measurement of Cardiac Sampling and Pressure, Left Heart, Percutaneous Approach (ICD-10-PCS; 2020-02-21)
PROC: B2111ZZ Fluoroscopy of Multiple Coronary Arteries using Low Osmolar Contrast (ICD-10-PCS; 2020-02-21)
DX: I21.4 Non-ST elevation (NSTEMI) myocardial infarction (principal); J44.0 Chronic obstructive pulmonary disease with (acute) lower respiratory infection; E11.9 Type 2 diabetes mellitus without complications; E66.9 Obesity, unspecified; F17.210 Nicotine dependence, cigarettes, uncomplicated; E78.5 Hyperlipidemia, unspecified; I10 Essential (primary) hypertension; R79.89 Other specified abnormal findings of blood chemistry; K81.1 Chronic cholecystitis; J20.9 Acute bronchitis, unspecified; I25.10 Atherosclerotic heart disease of native coronary artery without angina pectoris; E78.1 Pure hyperglyceridemia; Z79.84 Long term (current) use of oral hypoglycemic drugs; Z71.6 Tobacco abuse counseling; Z68.35 Body mass index [BMI] 35.0-35.9, adult
CPT/HCPCS: 36415; 36416; 80048; 80053; 80061; 80074; 82977; 83036; 83735; 85025; 85347; 92928; 93005; 93010; 93458; 93798; 94760; 96372; 99152; 99153; 99285; C1725; C1769; C1874; C1887; C9600; J0583; J1644; J1650; J2250; J2270; J3010; Q9967

== ENCOUNTER 2020-09-19 23:29 | Emergency (ER) | payer SELFPAY ==
[2020-09-19] MEDS ORDERED: Fluorescein Opthalmic Strip ONE (23:53)
[2020-09-19] MEDS ORDERED: Proparacaine 0.5% Opth 15 ML BOT ONE (23:53)
== END 2020-09-20 00:15 | disposition home or self-care (01) ==
LOC: ERS 23:29
DX: T15.02XA Foreign body in cornea, left eye, initial encounter (principal); E78.5 Hyperlipidemia, unspecified; E78.00 Pure hypercholesterolemia, unspecified; I10 Essential (primary) hypertension; E11.9 Type 2 diabetes mellitus without complications; I25.2 Old myocardial infarction; F17.210 Nicotine dependence, cigarettes, uncomplicated; Z79.84 Long term (current) use of oral hypoglycemic drugs
CPT/HCPCS: 99283